=== PATIENT | male | born 1955 | race Caucasian/White ===

== ENCOUNTER 2021-04-13 15:36 | Inpatient (IN) ==
[2021-04-13] MEDS ORDERED: Albuterol/Ipratropium NEB.SOL (2.5/0.5 MG) 3 ML NEB.SOLN INH ONE (15:56)
[2021-04-13 17:03] LABS: Troponin I 0.38 ng/mL (<0.03)
[2021-04-13] MEDS ORDERED: Albuterol HFA INHALER 8 gm MDI INH PRN (18:00)
[2021-04-13] MEDS ORDERED: Al Hydrox/Mg Hydrox/Simet LIQ 30 ML UDC PO PRN (18:01)
[2021-04-13] MEDS ORDERED: NS 0.9% 1000 ml BAG 1,000 ML IV SCH (18:15)
[2021-04-13] MEDS: methylPREDNISolone SOD 40 mg/ml 1 ml VIAL IV SCH (18:42)
[2021-04-13] MEDS: cefTRIAXone 1 gm/50 mL NS BAG 1 GM/50 ML BAG IVPB SCH (18:44)
[2021-04-13] MEDS ORDERED: Iohexol 350 (CONTRAST) 500 ML MDV IV ONE (20:09)
[2021-04-13 22:46] LABS: Troponin I 0.41 ng/mL (<0.03)
[2021-04-13] MEDS: Heparin 5000 UNITS/ML 1 mL VIAL SUBCUT SCH (23:22)
[2021-04-13 23:47] LABS: Troponin I 0.48 ng/mL (<0.03)
[2021-04-14 03:11] LABS: ABS Lymphocytes 0.5 10^3/ul (1.0-4.8); ABS Monocytes 0.4 10^3/ul (0-0.8); ABS Neutrophils 18.1 10^3/ul (1.5-7.7); Hematocrit 46 % (42-52); Hemoglobin 15.5 g/dL (14.0-18.0); Lymphocyte % 2.9 %; Mean Corpuscular HGB Conc 33 g/dL (31-36); Mean Corpuscular Hemoglobin 31 pg (27-31); Mean Corpuscular Volume 92 fL (80-94); Platelet Count 312 10^3/uL (150-450); Red Blood Count 5.03 10^6 /uL (4.18-5.48); Red Cell Distribution Width 17 % (10-15)
[2021-04-14 03:31] LABS: ALT 9 U/L (7-52); AST 12 U/L (13-39); Albumin 3.4 g/dL (3.2-5.2); Alkaline Phosphatase 157 U/L (35-149); Blood Urea Nitrogen 31 mg/dL (6-24); C Reactive Protein 230.38 mg/L (<8.01); Calcium 9.5 mg/dL (8.6-10.3); Chloride 96 mmol/L (101-111); Globulin 3.5 g/dL (2-4); Glucose 150 mg/dL (70-100); Indirect Bilirubin 0.3 mg/dL (0.3-1.0); Sodium 137 mmol/L (135-145); Total Protein 6.9 g/dL (6.4-8.9); eGFR CKD-EPI 99.4 (>60)
[2021-04-14 03:45] LABS: CO2 Carbon Dioxide 41 mmol/L (22-32); Potassium 5.2 mmol/L (3.5-5.0); Troponin I 0.42 ng/mL (<0.03)
[2021-04-14] MEDS ORDERED: SODIUM ZIRCONIUM CYCLOSILICATE 5 GM PACKET PO ONE (03:55)
[2021-04-14] MEDS: methylPREDNISolone SOD 40 mg/ml 1 ml VIAL IV SCH ×3 (06:18→21:35)
[2021-04-14] MEDS: Heparin 5000 UNITS/ML 1 mL VIAL SUBCUT SCH ×3 (06:18→21:36)
[2021-04-14 08:07] LABS: PO2 Arterial 248 mmHg (80-100)
[2021-04-14 08:45] LABS: PCO2 Arterial 91 mmHg (35-45)
[2021-04-14] MEDS: Azithromycin 500 mg/250 ml NS 500 MG/250 ML BAG IVPB SCH (09:01)
[2021-04-14] MEDS: FLUTICASONE/UMECLIDIN/VILANTER 1 PUFF MDI INH SCH (11:19)
[2021-04-14] MEDS: cefTRIAXone 1 gm/50 mL NS BAG 1 GM/50 ML BAG IVPB SCH ×2 (11:21→18:19)
[2021-04-14 11:27] LABS: PO2 Arterial 76 mmHg (80-100)
[2021-04-14 11:30] LABS: PCO2 Arterial 85 mmHg (35-45)
[2021-04-14 17:18] LABS: PCO2 Arterial 77 mmHg (35-45); PO2 Arterial 51 mmHg (80-100)
[2021-04-15 05:20] LABS: ABS Lymphocytes 0.4 10^3/ul (1.0-4.8); ABS Monocytes 0.6 10^3/ul (0-0.8); ABS Neutrophils 16.9 10^3/ul (1.5-7.7); Hematocrit 42 % (42-52); Hemoglobin 13.8 g/dL (14.0-18.0); Mean Corpuscular HGB Conc 33 g/dL (31-36); Mean Corpuscular Hemoglobin 30 pg (27-31); Mean Corpuscular Volume 92 fL (80-94); Mean Platelet Volume 8.1 fL (7.4-10.4); Platelet Count 314 10^3/uL (150-450); Red Blood Count 4.59 10^6 /uL (4.18-5.48); Red Cell Distribution Width 17 % (10-15); White Blood Count 17.9 10^3/uL (3.5-10.8)
[2021-04-15 05:33] LABS: Blood Urea Nitrogen 28 mg/dL (6-24); CO2 Carbon Dioxide 40 mmol/L (22-32); Calcium 9.3 mg/dL (8.6-10.3); Chloride 98 mmol/L (101-111); Glucose 119 mg/dL (70-100); Sodium 137 mmol/L (135-145); eGFR CKD-EPI 108.2 (>60)
[2021-04-15] MEDS: methylPREDNISolone SOD 40 mg/ml 1 ml VIAL IV SCH ×3 (05:37→22:17)
[2021-04-15] MEDS: Heparin 5000 UNITS/ML 1 mL VIAL SUBCUT SCH ×3 (05:42→22:17)
[2021-04-15] MEDS: FLUTICASONE/UMECLIDIN/VILANTER 1 PUFF MDI INH SCH (08:08)
[2021-04-15] MEDS: Azithromycin 500 mg/250 ml NS 500 MG/250 ML BAG IVPB SCH (09:48)
[2021-04-15 09:53] LABS: C Reactive Protein 113.21 mg/L (<8.01)
[2021-04-15] MEDS: SPIRIVA Respimat (tiotropium) 2.5 mcg/inh Inhaler INH SCH (11:54)
[2021-04-15] MEDS: Mometasone/Formoter 100/5 MDI INH SCH (11:54)
[2021-04-15] MEDS: cefTRIAXone 1 gm/50 mL NS BAG 1 GM/50 ML BAG IVPB SCH (18:08)
[2021-04-16] MEDS: Mometasone/Formoter 100/5 MDI INH SCH ×2 (00:16→07:19)
[2021-04-16] MEDS ORDERED: Albuterol/Ipratropium NEB.SOL (2.5/0.5 MG) 3 ML NEB.SOLN INH ONE (02:51)
[2021-04-16] MEDS: Heparin 5000 UNITS/ML 1 mL VIAL SUBCUT SCH (05:41)
[2021-04-16] MEDS: methylPREDNISolone SOD 40 mg/ml 1 ml VIAL IV SCH (05:41)
[2021-04-16] MEDS: SPIRIVA Respimat (tiotropium) 2.5 mcg/inh Inhaler INH SCH (07:19)
[2021-04-16] MEDS: Azithromycin 500 mg/250 ml NS 500 MG/250 ML BAG IVPB SCH (07:45)
[2021-04-16 08:00] VITALS: BP 124/57
[2021-04-16] MEDS ORDERED: Albuterol/Ipratropium NEB.SOL (2.5/0.5 MG) 3 ML NEB.SOLN INH PRN (08:16)
[2021-04-16 08:38] LABS: Hematocrit 43 % (42-52); Hemoglobin 13.7 g/dL (14.0-18.0); Mean Corpuscular HGB Conc 32 g/dL (31-36); Mean Corpuscular Hemoglobin 30 pg (27-31); Mean Corpuscular Volume 93 fL (80-94); Mean Platelet Volume 7.7 fL (7.4-10.4); Platelet Count 362 10^3/uL (150-450); Red Blood Count 4.62 10^6 /uL (4.18-5.48); Red Cell Distribution Width 18 % (10-15); White Blood Count 11.5 10^3/uL (3.5-10.8)
[2021-04-16 08:53] LABS: Potassium 4.5 mmol/L (3.5-5.0); eGFR CKD-EPI 108.8 (>60)
[2021-04-16] MEDS: cefTRIAXone 1 gm/50 mL NS BAG 1 GM/50 ML BAG IVPB SCH (09:49)
== END 2021-04-16 10:20 | disposition home or self-care (01) | DRG 871 ==
LOC: ED 15:36 → SUATTDRO 18:01 → EDHOLD 19:34 → MED 21:18
PROVIDERS: ADMIT Internal Medicine; ATTEND Hospitalist